=== PATIENT | female | born 1995 | race Two or more races ===

== ENCOUNTER 2018-04-03 17:28 | Emergency (ER) | payer OTHER ==
[~2018-04-03] VITALS: Ht 160 cm; Wt 72.5 kg
[2018-04-03 17:30] VITALS: BP 127/85
== END 2018-04-03 19:20 | disposition home or self-care (01) ==
LOC: ED 19:10
DX: J20.8 Acute bronchitis due to other specified organisms (principal); B97.89 Other viral agents as the cause of diseases classified elsewhere; R05 Cough; F17.200 Nicotine dependence, unspecified, uncomplicated
CPT/HCPCS: 71046; 99283; J7512